=== PATIENT | female | born 1965 | race African-American/Black ===

== ENCOUNTER 2024-07-26 16:23 | Inpatient (IN) | payer MEDICARE ==
[2024-07-26 18:17] LABS: #Basophils 0.07 10x3/uL (0.0-0.2); %Eosinophils 3.6 % (0.0-10.0); %Lymphocytes 25.8 % (21.0-51.0); %Monocytes 7.8 % (0.0-10.0); %Neutrophils 61.7 % (42.0-75.0); Hematocrit 39.6 % (36.0-47.0); Hemoglobin 12.4 g/dL (12.0-16.0); Mean Corpuscular HGB CONC 31.3 g/dL (32.0-36.0); Mean Corpuscular Hemoglobin 28.6 pg (27.0-31.0); Mean Corpuscular Volume 91.5 fL (78.0-98.0); Platelet Count 229 10x3/uL (130-400); RBC Distribution Width 15.4 % (11.5-14.5); Red Blood Cell (RBC) Count 4.33 mill/uL (4.20-5.40)
[2024-07-26 18:41] LABS: ALT (SGPT) 9 U/L (8-55); AST (SGOT) 14 U/L (5-34); Albumin 3.8 g/dL (3.5-5.0); Alkaline Phosphatase 101 U/L (40-110); Anion Gap 12 mmol/L (10-20); BUN (Urea Nitrogen) 8 mg/dL (9.8-20.1); Bilirubin, Total 0.3 mg/dL (0.2-1.2); Calc. Creatinine Clearance 0 mL/min (70-130); Calcium 9.6 mg/dL (7.8-10.44); Carbon Dioxide 25 mmol/L (22-29); Chloride 106 mmol/L (98-107); Estimated GFR 91; Globulin 4.6 g/dL (2.4-3.5); Glucose 87 mg/dL (70-105); Potassium 4.1 mmol/L (3.5-5.1); Protein, Total 8.4 g/dL (6.0-8.3); Sodium 139 mmol/L (136-145)
[2024-07-26 18:45] LABS: Troponin I Less than 0.010 ng/mL (< 0.028)
[2024-07-26] MEDS ORDERED: HYDROcodone/Acetaminophen 10/325 mg Tablet ONE (19:44)
[2024-07-26] MEDS ORDERED: Lisinopril 10 MG TAB ONE (20:05)
[2024-07-26] MEDS ORDERED: hydrALAZINE 20 MG/ML VIAL ONE (21:22)
[2024-07-26] MEDS ORDERED: Ondansetron PF 4 MG/2 ML Vial IVP PRN (22:48)
[2024-07-26] MEDS ORDERED: niCARdipine 25 MG in Sodium Chloride 0.9% 250 ML 250 ML IVPB SCH (23:00)
[2024-07-26] MEDS ORDERED: niCARdipine 25 MG/10 ML SDV ONE (23:38)
[2024-07-27 03:17] VITALS: BMI 50.0
[2024-07-27] MEDS: Acetaminophen 325 MG TAB PO PRN (04:12)
[2024-07-27 04:40] LABS: #Basophils 0.05 10x3/uL (0.0-0.2); #Eosinophils Less than 0.03 10x3/uL (0.0-0.7); %Basophils 0.9 % (0.0-1.0); %Eosinophils 0.3 % (0.0-10.0); %Lymphocytes 15.9 % (21.0-51.0); %Monocytes 9.6 % (0.0-10.0); %Neutrophils 73.1 % (42.0-75.0); Hematocrit 32.7 % (36.0-47.0); Hemoglobin 11.2 g/dL (12.0-16.0); Mean Corpuscular HGB CONC 34.3 g/dL (32.0-36.0); Mean Corpuscular Hemoglobin 28.5 pg (27.0-31.0); Mean Corpuscular Volume 83.2 fL (78.0-98.0); Mean Platelet Volume 8.6 fL (7.4-10.4); Platelet Count 236 10x3/uL (130-400); RBC Distribution Width 15.1 % (11.5-14.5); Red Blood Cell (RBC) Count 3.93 mill/uL (4.20-5.40)
[2024-07-27 05:51] LABS: Anion Gap 14 mmol/L (10-20); BUN (Urea Nitrogen) 9 mg/dL (9.8-20.1); Calc. Creatinine Clearance 139 mL/min (70-130); Calcium 9.3 mg/dL (7.8-10.44); Carbon Dioxide 24 mmol/L (22-29); Cardiac Risk 3.4 (Less than 4.5); Chloride 108 mmol/L (98-107); Cholesterol 175 mg/dl (< 200 Desired); Estimated GFR 84; Glucose 102 mg/dL (70-105); HDL Cholesterol 51 mg/dL (>60 Neg Risk); LDL Cholesterol, Calculated 110 mg/dL; Sodium 142 mmol/L (136-145); Triglycerides 69 mg/dL (Less than 150)
[2024-07-27] MEDS: Enoxaparin 40 MG (0.4 mL) SYRINGE SC SCH (09:36)
[2024-07-27] MEDS: Lisinopril 20 MG TAB PO SCH (09:36)
[2024-07-27] MEDS: Leflunomide 10 mg Tablet PO SCH (11:20)
[2024-07-27] MEDS: Hydroxychloroquine Sulfate 200 MG TAB PO SCH (11:21)
[2024-07-27] MEDS: Carvedilol 6.25 MG TAB PO SCH (16:27)
[2024-07-27] MEDS: Loperamide HCl 2 MG CAP PO PRN (17:07)
[2024-07-27] MEDS ORDERED: Betamethasone 0.1% Cream 15 GM TUBE TOP PRN (17:10)
[2024-07-27] MEDS: Atorvastatin Calcium 20 MG TAB PO SCH (19:48)
[2024-07-28] MEDS: Labetalol HCl 100 MG/20 ML VIAL SLOW IVP PRN (01:21)
[2024-07-28 04:45] LABS: #Basophils 0.04 10x3/uL (0.0-0.2); %Basophils 0.9 % (0.0-1.0); %Eosinophils 3.8 % (0.0-10.0); %Lymphocytes 36.1 % (21.0-51.0); Hematocrit 31.3 % (36.0-47.0); Hemoglobin 10.5 g/dL (12.0-16.0); Mean Corpuscular HGB CONC 33.5 g/dL (32.0-36.0); Mean Corpuscular Hemoglobin 28.2 pg (27.0-31.0); Mean Corpuscular Volume 83.9 fL (78.0-98.0); Mean Platelet Volume 8.4 fL (7.4-10.4); Platelet Count 222 10x3/uL (130-400); RBC Distribution Width 15.1 % (11.5-14.5); Red Blood Cell (RBC) Count 3.73 mill/uL (4.20-5.40)
[2024-07-28 05:00] LABS: Anion Gap 13 mmol/L (10-20); BUN (Urea Nitrogen) 11 mg/dL (9.8-20.1); Calc. Creatinine Clearance 144 mL/min (70-130); Calcium 8.9 mg/dL (7.8-10.44); Carbon Dioxide 22 mmol/L (22-29); Chloride 113 mmol/L (98-107); Estimated GFR 88; Glucose 90 mg/dL (70-105); Potassium 3.8 mmol/L (3.5-5.1); Sodium 144 mmol/L (136-145)
[2024-07-28] MEDS: Leflunomide 10 mg Tablet PO SCH (09:39)
[2024-07-28] MEDS: NIFEdipine XL 30 MG ER.TAB PO SCH (09:39)
[2024-07-28] MEDS: Lisinopril 20 MG TAB PO SCH (09:39)
[2024-07-28] MEDS: Carvedilol 25 MG TAB PO SCH ×2 (11:26→15:44)
[2024-07-29] MEDS: Acetaminophen 500 MG TAB PO PRN (02:58)
[2024-07-29 04:34] LABS: #Basophils 0.06 10x3/uL (0.0-0.2); %Basophils 1.2 % (0.0-1.0); %Eosinophils 6.5 % (0.0-10.0); %Lymphocytes 32.6 % (21.0-51.0); %Monocytes 13.4 % (0.0-10.0); %Neutrophils 46.1 % (42.0-75.0); Hemoglobin 10.3 g/dL (12.0-16.0); Mean Corpuscular HGB CONC 33.2 g/dL (32.0-36.0); Mean Corpuscular Hemoglobin 28.7 pg (27.0-31.0); Mean Corpuscular Volume 86.4 fL (78.0-98.0); Mean Platelet Volume 8.4 fL (7.4-10.4); Platelet Count 231 10x3/uL (130-400); Red Blood Cell (RBC) Count 3.59 mill/uL (4.20-5.40)
[2024-07-29 05:07] LABS: Anion Gap 13 mmol/L (10-20); BUN (Urea Nitrogen) 11 mg/dL (9.8-20.1); Calc. Creatinine Clearance 148 mL/min (70-130); Calcium 8.8 mg/dL (7.8-10.44); Carbon Dioxide 24 mmol/L (22-29); Chloride 109 mmol/L (98-107); Estimated GFR 91; Glucose 101 mg/dL (70-105); Potassium 3.8 mmol/L (3.5-5.1); Sodium 142 mmol/L (136-145)
[2024-07-30 11:27] VITALS: BP 179/79; TEMP 97.9
== END 2024-07-30 14:41 | disposition home or self-care (01) | DRG 305 ==
LOC: ERS 16:23 → ERHOLD 22:48 → 2NO 07-27 03:03
PROVIDERS: ADMIT Internal Medicine; ATTEND Hospitalist
DX: I16.0 Hypertensive urgency (principal); G44.209 Tension-type headache, unspecified, not intractable; M94.0 Chondrocostal junction syndrome [Tietze]; Z79.899 Other long term (current) drug therapy; I10 Essential (primary) hypertension; E78.5 Hyperlipidemia, unspecified; M06.9 Rheumatoid arthritis, unspecified; Z98.890 Other specified postprocedural states; Z96.653 Presence of artificial knee joint, bilateral; Z82.49 Family history of ischemic heart disease and other diseases of the circulatory system
CPT/HCPCS: 36415; 70450; 71045; 80048; 80053; 80061; 83880; 84484; 85025; 93005; 96365; 96375; J0360; J1650